=== PATIENT | male | born 2000 | race Caucasian/White ===

== ENCOUNTER 2022-10-19 12:22 | Inpatient (IN) ==
--- NOTE | 2022-10-19 12:26 | Emergency Department Note ---
Impression & Plan Depression with suicidal ideation ED Provider Note NAME: EDWIN MELLO AGE: 22 SEX: M : 2000 ARRIVES VIA: [employer] INFORMANT: Patient, ED PROVIDER(S): Trell Wolfe MD CHIEF COMPLAINT: Outpatient referral, suicidal ideation MEDICAL DECISION MAKING: Patient presents due to concern for suicidal ideation and is currently voluntary 201. Blood was obtained along with urinalysis urine drug screen and toxicology scr eens. Patient was he medically cleared and the patient was referred for inpatient treatment. Patient was excepted to [facility] S. for inpatient treatment. Prior /Outside records reviewed: None Differential diagnosis: Mood disorder, infection, hypoglycemia, electrolyte abnormalities, dehydration, medication side effect among others were considered. Diagnostics, as interpreted by me: Medical decision rules: Suicide risk assessment HPI: Patient presents as a referral from on campus Through [facility]. The patient states that something happened while he was in his class this morning he walked outside sat on a bench and was observing the moving traffic thinking that he could "end everything right now." Patient states that he was thinking about jumping in front of a moving vehicle in order to kill himself. States that he called his mother who then spoke with his brother and took a bus back to his apartment and then went to [place]. The patient states that this is been culminating over the last month. Patient states that at home he does have a father who is a relapsing alcoholic. He states that he is often verbally abusive and projects blame to others. He did recently transfer from [facility] to [facility]. The patient states that he also feels lost and is unsure as to whether or not he was to continue with [employer]. Patient denies any alcohol tobacco or drug use. The patient is new formal history or formal diagnosis of anxiety or depression. Patient denies any active HI or AVH. Patient states he currently lives with [email or web address] and is getting along with them. The patient has been attending his classes. Patient states that he has not been eating as much and feels as though he is not getting enough sleep but does believe that he got a full nights rest last evening. PAST MEDICAL HISTORY: No pertinent past medical history PAST SURGICAL HISTORY: No pertinent past surgical history SOCIAL HISTORY: [employer] [facility] student studying [employer]. Denies alcohol tobacco or drug use. HOME MEDICATIONS: See Below ALLERGIES: See Below VITALS: See Below PHYSICAL EXAMINATION: GENERAL: NAD, non-toxic. EYE EXAM: Normal conjunctiva. PERRL, no anisocoria and EOM's grossly intact w/o pain. OROPHARYNX: Moist mucus membranes, grossly normal dentition. NECK: Supple, no nuchal rigidity, no adenopathy, non-tender. No signs of meningismus. FROM of the neck with good chin to chest and neck extension. No stridor. LUNGS: Clear to auscultation. Normal chest wall mechanics. HEART: NSR, no MRG. ABDOMEN: Abdomen soft, non-tender, no masses, no rebound or guarding. BACK: No CVA TTP. SKIN: No rashes and no bruising. UPPER EXTREMITIES: Upper extremities are grossly normal. LOWER EXTREMITIES: Grossly normal, no edema. NEURO EXAM: A&O x3, cranial nerves II-XII grossly intact, normal speech, moves all 4 extremities. Psych: Positive SI with plan, did not denies HI or AVH. Past Med/Surg History Social History Smoking Status: Never smoker Preferred Language: [place] Verdean Communication Ability: Effective Crate Tier Required: No Beliefs That Will Affect Care: None Feels Safe at Home: Yes Gender Identity: Male Assistive Devices: Contacts and Glasses Allergies Allergies Allergy/AdvReac Type Severity Reaction Status Date / Time influenza virus vaccine ts Allergy Severe Swelling Unverified 10/20/22 10:39 [id number] (36 mos,up) of [From Fluarix] Lip/Tongue/Throat Home Meds Home Medications Medication Instructions Recorded Confirmed No Known Home Medications 10/19/22 10/19/22 Results & Data (ED) Vital Signs Vital Signs - 24 hr 10/19/22 12:24 10/19/22 14:03 Temperature 37.6 C H 36.9 C Temperature Source Oral Oral Pulse Rate 79 Pulse Rate [Finger] 72 Respiratory Rate 20 18 Blood Pressure 150/79 H Blood Pressure [Left Arm] 136/82 Blood Pressure Mean 102 Blood Pressure Mean [Left Arm] 100 Blood Pressure Position Sitting Blood Pressure Position [Left Arm] Sitting Pulse Oximetry 97 100 Oxygen Delivery Method Room Air Room Air Sepsis Recent Fever Within 48 Hours No Sepsis New/Unexplained Change in Mental Status No Sepsis Action Taken by Nursing No Action Required Home Medications Current Medication List: was personally reviewed by la Laboratory Data Attestation: I reviewed the patient's lab results. 10/19/22 12:50 10/19/22 12:50 Lab Results 10/19/22 10/19/22 10/19/22 Range/Units 12:38 12:38 12:50 WBC 6.12 (4.8-10.8) K/ul RBC 5.05 (4.70-6.10) M/uL Hgb 14.6 (14.0-18.0) g/dl Hct 42.1 (42.0-52.0) % MCV 83.4 (80.0-100.0) fL MCH 28.9 (25.0-34.0) pg MCHC 34.7 (32.0-36.0) g/dL RDW Std Deviation 39.2 (36.4-46.3) fL RDW Coeff of Petra 12.9 (11.5-14.5) % Plt Count 209 (130-400) K/uL MPV 9.7 (9.4-12.4) fL Immature Gran % (Auto) 0.2 % Neut % (Auto) 63.9 % Lymph % (Auto) 27.0 % Dubois % (Auto) 7.8 % Eos % (Auto) 0.8 % Baso % (Auto) 0.3 % Neut # (Auto) 3.91 (1.40-6.50) K/uL Lymph # (Auto) 1.65 (1.20-3.40) K/uL Dubois # (Auto) 0.48 (0.11-0.59) K/uL Eos # (Auto) 0.05 (0.00-0.50) K/uL Baso # (Auto) 0.02 (0.00-0.20) K/uL Immature Gran # (Auto) 0.01 (0.01-0.20) K/uL Sodium (136-145) mmol/L Potassium (3.5-5.1) mmol/L Chloride (98-107) mmol/L Carbon Dioxide (21-32) mmol/L Anion Gap (3-11) BUN (6-23) mg/dl Creatinine (0.6-1.4) mg/dl Est Cr Clr Drug Dosing ml/min Est GFR ( Amer) ml/min Est GFR (Non-Af Amer) ml/min BUN/Creatinine Ratio (10-20) Glucose (70-99(Fasting)) mg/dl Calcium (8.6-10.3) mg/dl Total Bilirubin (0.2-1.0) mg/dl AST (13-39) U/L ALT (7-52) U/L Alkaline Phosphatase (34-104) U/L Total Protein (6.0-8.3) gm/dl Albumin (3.4-5.0) gm/dl Globulin (2.5-4.0) gm/dl Albumin/Globulin Ratio (0.9-2) TSH (0.300-4.500) uIu/ml Urine Color Yellow Urine Appearance Clear (Clear) Urine pH 8.5 H (4.5-7.5) Ur Specific [place] 1.016 (1.000-1.030) Urine Protein Negative (Negative) Urine Glucose (UA) Negative (Negative) Urine Ketones Negative (Negative) Urine Blood Negative (Negative) Urine Nitrite Negative (Negative) Urine Bilirubin Negative (Negative) Urine Urobilinogen Negative (Negative) Ur Leukocyte Esterase Negative (Negative) Salicylates (3.0-30) mg/dl Urine Opiates Screen Neg (Neg) Ur Methadone, Qual Neg (Neg) Acetaminophen (10-30) ug/ml Urine Barbiturates Neg (Neg) Ur Phencyclidine (PCP) Neg (Neg) U Amphetamin/Meth Scrn Neg (Neg) MDMA (Ecstasy) Screen Neg (Neg) U Benzodiazepines Scrn Neg (Neg) Ur Cocaine Metabolite Neg (Neg) U Marijuana (THC) Screen Neg (Neg) Ethyl Alcohol mg/dL (<10.0) mg/dl 10/19/22 10/19/22 10/19/22 Range/Units 12:50 12:50 12:50 WBC (4.8-10.8) K/ul RBC (4.70-6.10) M/uL Hgb (14.0-18.0) g/dl Hct (42.0-52.0) % MCV (80.0-100.0) fL MCH (25.0-34.0) pg MCHC (32.0-36.0) g/dL RDW Std Deviation (36.4-46.3) fL RDW Coeff of Petra (11.5-14.5) % Plt Count (130-400) K/uL MPV (9.4-12.4) fL Immature Gran % (Auto) % Neut % (Auto) % Lymph % (Auto) % [place] % (Auto) % Eos % (Auto) % Baso % (Auto) % Neut # (Auto) (1.40-6.50) K/uL Lymph # (Auto) (1.20-3.40) K/uL [place] # (Auto) (0.11-0.59) K/uL Eos # (Auto) (0.00-0.50) K/uL Baso # (Auto) (0.00-0.20) K/uL Immature Gran # (Auto) (0.01-0.20) K/uL Sodium 138 (136-145) mmol/L Potassium 3.7 (3.5-5.1) mmol/L Chloride 107 (98-107) mmol/L Carbon Dioxide 23 (21-32) mmol/L Anion Gap 8 (3-11) BUN 9 (6-23) mg/dl Creatinine 0.76 (0.6-1.4) mg/dl Est Cr Clr Drug Dosing 164.6 ml/min Est GFR ( Amer) > 150.0 ml/min Est GFR (Non-Af Amer) 131.3 ml/min BUN/Creatinine Ratio 11.8 (10-20) Glucose 97 (70-99(Fasting)) mg/dl Calcium 9.7 (8.6-10.3) mg/dl Total Bilirubin 0.8 (0.2-1.0) mg/dl AST 20 (13-39) U/L ALT 33 (7-52) U/L Alkaline Phosphatase 92 (34-104) U/L Total Protein 7.5 (6.0-8.3) gm/dl Albumin 4.7 (3.4-5.0) gm/dl Globulin 2.8 (2.5-4.0) gm/dl Albumin/Globulin Ratio 1.7 (0.9-2) TSH 1.836 (0.300-4.500) uIu/ml Urine Color Urine Appearance (Clear) Urine pH (4.5-7.5) Ur Specific [place] (1.000-1.030) Urine Protein (Negative) Urine Glucose (UA) (Negative) Urine Ketones (Negative) Urine Blood (Negative) Urine Nitrite (Negative) Urine Bilirubin (Negative) Urine Urobilinogen (Negative) Ur Leukocyte Esterase (Negative) Salicylates < 3.0 L (3.0-30) mg/dl Urine Opiates Screen (Neg) Ur Methadone, Qual (Neg) Acetaminophen < 3 L (10-30) ug/ml Urine Barbiturates (Neg) Ur Phencyclidine (PCP) (Neg) U Amphetamin/Meth Scrn (Neg) MDMA (Ecstasy) Screen (Neg) U Benzodiazepines Scrn (Neg) Ur Cocaine Metabolite (Neg) U Marijuana (THC) Screen (Neg) Ethyl Alcohol mg/dL (<10.0) mg/dl 10/19/22 Range/Units 12:50 WBC (4.8-10.8) K/ul RBC (4.70-6.10) M/uL Hgb (14.0-18.0) g/dl Hct (42.0-52.0) % MCV (80.0-100.0) fL MCH (25.0-34.0) pg MCHC (32.0-36.0) g/dL RDW Std Deviation (36.4-46.3) fL RDW Coeff of Petra (11.5-14.5) % Plt Count (130-400) K/uL MPV (9.4-12.4) fL Immature Gran % (Auto) % Neut % (Auto) % Lymph % (Auto) % [place] % (Auto) % Eos % (Auto) % Baso % (Auto) % Neut # (Auto) (1.40-6.50) K/uL Lymph # (Auto) (1.20-3.40) K/uL [place] # (Auto) (0.11-0.59) K/uL Eos # (Auto) (0.00-0.50) K/uL Baso # (Auto) (0.00-0.20) K/uL Immature Gran # (Auto) (0.01-0.20) K/uL Sodium (136-145) mmol/L Potassium (3.5-5.1) mmol/L Chloride (98-107) mmol/L Carbon Dioxide (21-32) mmol/L Anion Gap (3-11) BUN (6-23) mg/dl Creatinine (0.6-1.4) mg/dl Est Cr Clr Drug Dosing ml/min Est GFR ( Amer) ml/min Est GFR (Non-Af Amer) ml/min BUN/Creatinine Ratio (10-20) Glucose (70-99(Fasting)) mg/dl Calcium (8.6-10.3) mg/dl Total Bilirubin (0.2-1.0) mg/dl AST (13-39) U/L ALT (7-52) U/L Alkaline Phosphatase (34-104) U/L Total Protein (6.0-8.3) gm/dl Albumin (3.4-5.0) gm/dl Globulin (2.5-4.0) gm/dl Albumin/Globulin Ratio (0.9-2) TSH (0.300-4.500) uIu/ml Urine Color Urine Appearance (Clear) Urine pH (4.5-7.5) Ur Specific [place] (1.000-1.030) Urine Protein (Negative) Urine Glucose (UA) (Negative) Urine Ketones (Negative) Urine Blood (Negative) Urine Nitrite (Negative) Urine Bilirubin (Negative) Urine Urobilinogen (Negative) Ur Leukocyte Esterase (Negative) Salicylates (3.0-30) mg/dl Urine Opiates Screen (Neg) Ur Methadone, Qual (Neg) Acetaminophen (10-30) ug/ml Urine Barbiturates (Neg) Ur Phencyclidine (PCP) (Neg) U Amphetamin/Meth Scrn (Neg) MDMA (Ecstasy) Screen (Neg) U Benzodiazepines Scrn (Neg) Ur Cocaine Metabolite (Neg) U Marijuana (THC) Screen (Neg) Ethyl Alcohol mg/dL < 10.0 (<10.0) mg/dl Administered Medications Discontinued Medications Miscellaneous Information (Patient's Allergy Info Needs Entered) 1 each N/A NOW STA Stop: 10/19/22 15:23 Last Admin: 10/19/22 17:53 Dose: 1 each Documented By: DMT Miscellaneous Information (Patient's Allergy Info Needs Entered) 1 each N/A Q15M KIKI Stop: 10/19/22 21:31 Last Admin: 10/19/22 20:25 Dose: 1 each Documented By: DMT Discharge Plan Visit Data Chief Complaint: Mental Health Evaluation Stated Complaint: MHID ED Provider: Trell Wolfe Discharge Problem: Depression with suicidal ideation Patient Disposition: Admitted As Inpatient Discharge Instructions Interventions: ED Discharge Assessment Last Done: 10/19/22 15:04
[2022-10-19 13:08] LABS: Appearance Urine Clear (Clear); Bilirubin Urine Negative (Negative); Blood Urine Negative (Negative); Color Urine Yellow; Glucose Urine UA Negative (Negative); Ketones Urine Negative (Negative); Leukocyte Esterase Urine Negative (Negative); Nitrite Urine Negative (Negative); Protein Urine Negative (Negative); Specific Gravity Urine 1.016 (1.000-1.030); Urobilinogen Urine Negative (Negative); pH Urine 8.5 (4.5-7.5)
[2022-10-19 13:14] LABS: Basophils # (auto) 0.02 K/uL (0.00-0.20); Basophils % (auto) 0.3 %; Eosinophils # (auto) 0.05 K/uL (0.00-0.50); Eosinophils % (auto) 0.8 %; Hematocrit (blood only) 42.1 % (42.0-52.0); Hemoglobin 14.6 g/dl (14.0-18.0); Immature Granulocytes # (auto) 0.01 K/uL (0.01-0.20); Immature Granulocytes % (auto) 0.2 %; Lymphocytes # (auto) 1.65 K/uL (1.20-3.40); Mean Corpuscular Hemoglobin 28.9 pg (25.0-34.0); Mean Corpuscular Hgb Conc 34.7 g/dL (32.0-36.0); Mean Corpuscular Volume 83.4 fL (80.0-100.0); Mean Platelet Volume 9.7 fL (9.4-12.4); Monocytes # (auto) 0.48 K/uL (0.11-0.59); Monocytes % (auto) 7.8 %; Neutrophils # (auto) 3.91 K/uL (1.40-6.50); Neutrophils % (auto) 63.9 %; Platelet Count 209 K/uL (130-400); RDW Coefficient of Variation 12.9 % (11.5-14.5); RDW Standard Deviation 39.2 fL (36.4-46.3); Red Blood Count 5.05 M/uL (4.70-6.10); White Blood Count 6.12 K/ul (4.8-10.8)
[2022-10-19 13:36] LABS: Amphetamines+Metham, Urine Neg (Neg); Barbiturates, Urine Neg (Neg); Benzodiazepine, Urine Neg (Neg); Cocaine, Urine Neg (Neg); MDMA (Ecstacy), Urine Neg (Neg); Methadone, Urine Neg (Neg); Opiate, Urine Neg (Neg); Phencyclidine, Urine Neg (Neg)
[2022-10-19 13:37] LABS: Acetaminophen < 3 ug/ml (10-30); Salicylate < 3.0 mg/dl (3.0-30)
[2022-10-19 13:39] LABS: Alanine Aminotransferase 33 U/L (7-52); Albumin Globulin Ratio 1.7 (0.9-2); Albumin Level 4.7 gm/dl (3.4-5.0); Alkaline Phosphatase 92 U/L (34-104); Anion Gap 8 (3-11); Aspartate Aminotransferase 20 U/L (13-39); BUN Creatinine Ratio 11.8 (10-20); Bilirubin,Total 0.8 mg/dl (0.2-1.0); Blood Urea Nitrogen 9 mg/dl (6-23); Calcium 9.7 mg/dl (8.6-10.3); Carbon Dioxide 23 mmol/L (21-32); Chloride 107 mmol/L (98-107); Creatinine Clr Calc Pharmacy 164.6 ml/min; Est GFR (African American) > 150.0 ml/min; Est GFR (Non-African American) 131.3 ml/min; Globulin 2.8 gm/dl (2.5-4.0); Glucose 97 mg/dl (70-99(Fasting)); Potassium 3.7 mmol/L (3.5-5.1); Sodium 138 mmol/L (136-145); Total Protein 7.5 gm/dl (6.0-8.3)
[2022-10-19] MEDS ORDERED: ACETAMINOPHEN 325 MG TAB PO PRN (15:19)
[2022-10-19] MEDS ORDERED: MAGNESIUM HYDROXIDE SUSP 30 ML UDC PO PRN (15:19)
[2022-10-19] MEDS ORDERED: SODIUM CHLORIDE 0.65% NA SOLN 45 ML (OCEAN) PRN (15:19)
[2022-10-19] MEDS ORDERED: BISMUTH SUBSALICYLATE LIQD 236 ML PO PRN (15:19)
[2022-10-19] MEDS ORDERED: ALUMINUM/MAGNESIUM SUSP 30 ML UDC PO PRN (15:19)
[2022-10-19] MEDS ORDERED: hydrOXYzine HCl 25 MG TAB PO PRN ×2 (15:19)
[2022-10-19] MEDS ORDERED: Patient's ALLERGY Info needs ENTERED STA (15:22)
[2022-10-19] MEDS: Patient's ALLERGY Info needs ENTERED SCH (20:25)
--- NOTE | 2022-10-20 09:04 | History & Physical ---
Date of Service October 20, 2022 Impression / Recommendations Tobias Trujillo is a 22 year old man and [employer] student with no formal psychiatric history who was admitted for worsening depresion with SI with plan in context of questioning his major and recent transition to [employer] [facility] main campus. Diagnostically consistent with major depressive disorder and CARLA with panic attacks. He is deemed in need of psychiatric hospitalization for diagnostic clarification, safety and stabilization, medication management and development of further coping skills. Discussed medication treatment options in detail including SSRIs. Discussed risks, benefits and alternatives. Patient would like to start and consented to sertraline for MDD and CARLA. Reviewed side effects including but not limited to: GI, MARSH, sexual side effects, and counseled on black box warning of potential for emergence of or increased SI and need to let staff know should this occur or should they feel unsafe. Also discussed importance of seeking emergency care following discharge if this side effect occurs in the future. Overall I spent a total of 75 minutes for this admission including review of chart records, review of labwork, direct evaluation of the patient, counseling the patient, ordering medication, risk assessment, discussion with the psychiatric liason RN and documentation in the electronic health record. (1) Depression with suicidal ideation: (2) Major depress dis, severe: Plan 10/20/2022: The patient was admitted to the [facility] ([facility] mental health unit) on q15 min checks (behavioral with suicide precautions) for safety. The patient will participate in group, recreational, and milieu therapies and will be offered additional individual and family sessions as clinically appropriate. -sertraline 50mg qd Inventory Assets Strengths: supportive relationships, willing to get treatment Needs: safety and stabilization, medication adjustment, additional coping skills, increased outpatient services Suicide Risk Level Suicide Risk Level: High-Moderate (q15 min suicide checks) (severe depression with SI with plan prior to admission but feels safe in the hospital, able to safety contract and agrees to let nursing/staff know should they develop plan, intent or feel unable to remain safe. 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 Chief Complaint "I feel like I dug myself into a hole". History of Present Illness Edwin was referred to the ED by [facility] for worsening depression and SI with plan of walking into traffic. His mood has been worsening in the context of multiple psychosocial stressors including transitioning from a [employer] [facility] to [facility] and unsure about continuing with his chosen major/career path. He felt so overwhelmed yesterday that he walked out of class and thought about walking into fast moving cars but then called his mom and called the [facility] crisis line. He feels like he's been experiencing depression for the last few weeks with "a general sadness and numbness of the situation" since his move and "more and more invasive of thinking 'I can't do this'" along with SI every few days "but then they just got more intense". He endorses depressive symptoms including: anhedonia (difficulty relaxing), tearfulness, self-guilt, hopelessness, helplessness, decreased energy, decreased motivation, decreased concentration, sleep has been ok, and decreased appetite. He also endorses chronic anxiety symptoms which have been worsening including: excessive worry, restlessness, fatigue, irritability, decreased concentration, and panic attacks (over the summer once a month, during the rest of the year every few months). Further recent history per ED CM note on 10/19/2022: "He was referred to the Emergency Department by [facility] after he called [facility]'s Crisis Line. Edwin states that he was in class this morning and suddenly got overwhelmed and had to leave. He went and sat by the road and had the thought/urge to walk out into traffic and end it all. He states that he has had suicidal ideation for the past month and it has worsened over the past two days. He admits to feeling lost and trapped in regards to his recent transfer to [facility] from [facility] [facility] [employer] [employer]'s [facility]. 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 He also endorses familial stress in that his father is a relapsing alcoholic, his mother is dealing with him, and his brother has his own depressive issues. Edwin has no outpatient providers and does not take any medication for his mental health. He does not follow with psychiatry. His sleep has been somewhat okay but he feels when he wakes up as if he hasn't gotten any sleep at all. His appetite has been decreased, his concentration has been poor, and he lacks motivation to complete tasks. Edwin is willing and voluntary for inpatient psychiatric treatment, he has no history of this. He lives on campus with roommates, no access to firearms. He denies SIB, A/V hallucinations and HI. He states he has negative feelings towards his father but denies any active plan or intent to kill him." He is not currently prescribed any psychiatric medications. Psychiatric ROS notable for no current nor history of symptoms of jerry, psychosis, OCD, eating disorder nor self-harm. Past Psychiatric History Current Psychiatric Diagnosis: Depression, Anxiety Outpatient Services: none currently, hx therapy at [facility] Previous Psych Admissions: none Do You Have Access To A Gun?: Yes (rifles at parents house, locked in gun safe, he doesn't have coles) History of Previous Suicide Attempt: No Past Medication Trials: none Past Head Trauma/Neuro History History of Concussion/Seizure: No Allergies Allergy/AdvReac Type Severity Reaction Status Date / Time influenza virus vaccine ts Allergy Severe Swelling Unverified 10/20/22 10:39 [id number] (36 mos,up) of [From Fluarix] Lip/Tongue/Throat Home Medications Medication Instructions Recorded Confirmed Type No Known Home Medications 10/19/22 10/19/22 History Family History Family History of: Depression (brother), Alcoholism/Drug Abuse (father) and Suicide Attempts (brother at age 14/15 ) Alcohol History Hx of Alcohol Use Over the Past 12 Months: Yes (1-2 drinks/week) AUDIT Total Score: 2 May drink monthly, 2 drinks over 3 hours Smoking Use Have You Smoked or Used Tobacco Products in the Last 30 Days: No Smoking Status: Never smoker Substance History Hx of Prescription Med Misuse Over the Past 12 Months: No Hx of Over the Counter Med Misuse Over the Past 12 Months: No Hx of Inhalent Misuse Over the Past 12 Months: No Hx of Organic Substance Use Over the Past 12 Months: No Hx of Illegal Substances/Street Drug Use Over Past 12 Months: No Problems as a Result of Past Substance Use: None Identified Problems as a Result of Past Substance Use Comments: None identified Has smoked marijuana in the past but only a few times, none in recent months Personal History Living Arrangements: Apartment Childhood: Grew up in [facility] [place]. Parents . Older brother. Highest Grade Completed: Some College ([employer] in [employer]) Employment Status: Student Marital Status: Single Number Of Children: n/a Beliefs That Will Affect Care: None Current Legal Problems: No Hx Legal Problems: No Hx Traumatic Life Events: Yes Patient History Social History Smoking Status: Never smoker Preferred Language: Congolese Communication Ability: Effective Senior Marketing Associate Required: No Beliefs That Will Affect Care: None Feels Safe at Home: Yes Gender Identity: Male Assistive Devices: Contacts and Glasses Review of Systems Review of Systems: All systems reviewed & are unremarkable except as noted in HPI & below Physical Exam Psychiatric: Orientation: alert and oriented x 3 Apperance: appropriately dressed and appropriately groomed Eye Contact: good eye contact Motor Behavior: no abnormal motor movements Speech: normal rate/rhythm/volume of speech Affect: + depressed affect Mood: + depressed mood and + anxious mood Thought Process: goal directed thought process Thought Content: reality based without delusions Suicidal Thoughts: denies suicidal intent; + reports suicidal thoughts and + reports suicidal plan (none for hospital, walk into traffic outside hospital) Homicidal Thoughts: denies homicidal thoughts Hallucinations: no auditory hallucinations and no visual hallucinations Cognition: recent memory grossly intact, remote memory grossly intact, attention grossly intact and language grossly intact Estimated Intelligence: consistent with education level Insight: + fair insight Judgment: + fair judgement Vital Signs (Past 24 Hours): Last Vital Signs Temp 36.5 C 10/20/22 06:38 Pulse 90 10/20/22 06:38 Resp 16 10/20/22 06:38 BP 158/76 H 10/20/22 06:38 Pulse Ox 99 10/20/22 06:38 O2 Del Method Room Air 10/20/22 06:38 Exam Statement: A physical exam was performed in the ED by Dr. Wolfe for the purposes of medical clearance. I accept that physical as correct and adequate for the purposes of the inpatient physical exam. Results & Data ([facility]) Laboratory Results Laboratory Results - last 24 hr 10/19/22 10/19/22 10/19/22 12:38 12:38 12:50 WBC 6.12 RBC 5.05 Hgb 14.6 Hct 42.1 MCV 83.4 MCH 28.9 MCHC 34.7 RDW Std Deviation 39.2 RDW Coeff of Petra 12.9 Plt Count 209 MPV 9.7 Immature Gran % (Auto) 0.2 Neut % (Auto) 63.9 Lymph % (Auto) 27.0 Schuyler % (Auto) 7.8 Eos % (Auto) 0.8 Baso % (Auto) 0.3 Neut # (Auto) 3.91 Lymph # (Auto) 1.65 Schuyler # (Auto) 0.48 Eos # (Auto) 0.05 Baso # (Auto) 0.02 Immature Gran # (Auto) 0.01 Sodium Potassium Chloride Carbon Dioxide Anion Gap BUN Creatinine Est Cr Clr Drug Dosing Est GFR ( Amer) Est GFR (Non-Af Amer) BUN/Creatinine Ratio Glucose Calcium Total Bilirubin AST ALT Alkaline Phosphatase Total Protein Albumin Globulin Albumin/Globulin Ratio TSH Urine Color Yellow Urine Appearance Clear Urine pH 8.5 H Ur Specific [place] 1.016 Urine Protein Negative Urine Glucose (UA) Negative Urine Ketones Negative Urine Blood Negative Urine Nitrite Negative Urine Bilirubin Negative Urine Urobilinogen Negative Ur Leukocyte Esterase Negative Salicylates Urine Opiates Screen Neg Ur Methadone, Qual Neg Acetaminophen Urine Barbiturates Neg Ur Phencyclidine (PCP) Neg U Amphetamin/Meth Scrn Neg MDMA (Ecstasy) Screen Neg U Benzodiazepines Scrn Neg Ur Cocaine Metabolite Neg U Marijuana (THC) Screen Neg Ethyl Alcohol mg/dL SARS-CoV-2, RNA, NAAT 10/19/22 10/19/22 10/19/22 12:50 12:50 12:50 WBC RBC Hgb Hct MCV MCH MCHC RDW Std Deviation RDW Coeff of Petra Plt Count MPV Immature Gran % (Auto) Neut % (Auto) Lymph % (Auto) [place] % (Auto) Eos % (Auto) Baso % (Auto) Neut # (Auto) Lymph # (Auto) [place] # (Auto) Eos # (Auto) Baso # (Auto) Immature Gran # (Auto) Sodium 138 Potassium 3.7 Chloride 107 Carbon Dioxide 23 Anion Gap 8 BUN 9 Creatinine 0.76 Est Cr Clr Drug Dosing 164.6 Est GFR ( Amer) > 150.0 Est GFR (Non-Af Amer) 131.3 BUN/Creatinine Ratio 11.8 Glucose 97 Calcium 9.7 Total Bilirubin 0.8 AST 20 ALT 33 Alkaline Phosphatase 92 Total Protein 7.5 Albumin 4.7 Globulin 2.8 Albumin/Globulin Ratio 1.7 TSH 1.836 Urine Color Urine Appearance Urine pH Ur Specific [place] Urine Protein Urine Glucose (UA) Urine Ketones Urine Blood Urine Nitrite Urine Bilirubin Urine Urobilinogen Ur Leukocyte Esterase Salicylates < 3.0 L Urine Opiates Screen Ur Methadone, Qual Acetaminophen < 3 L Urine Barbiturates Ur Phencyclidine (PCP) U Amphetamin/Meth Scrn MDMA (Ecstasy) Screen U Benzodiazepines Scrn Ur Cocaine Metabolite U Marijuana (THC) Screen Ethyl Alcohol mg/dL SARS-CoV-2, RNA, NAAT 10/19/22 10/19/22 12:50 Unknown WBC RBC Hgb Hct MCV MCH MCHC RDW Std Deviation RDW Coeff of Petra Plt Count MPV Immature Gran % (Auto) Neut % (Auto) Lymph % (Auto) [place] % (Auto) Eos % (Auto) Baso % (Auto) Neut # (Auto) Lymph # (Auto) [place] # (Auto) Eos # (Auto) Baso # (Auto) Immature Gran # (Auto) Sodium Potassium Chloride Carbon Dioxide Anion Gap BUN Creatinine Est Cr Clr Drug Dosing Est GFR ( Amer) Est GFR (Non-Af Amer) BUN/Creatinine Ratio Glucose Calcium Total Bilirubin AST ALT Alkaline Phosphatase Total Protein Albumin Globulin Albumin/Globulin Ratio TSH Urine Color Urine Appearance Urine pH Ur Specific [place] Urine Protein Urine Glucose (UA) Urine Ketones Urine Blood Urine Nitrite Urine Bilirubin Urine Urobilinogen Ur Leukocyte Esterase Salicylates Urine Opiates Screen Ur Methadone, Qual Acetaminophen Urine Barbiturates Ur Phencyclidine (PCP) U Amphetamin/Meth Scrn MDMA (Ecstasy) Screen U Benzodiazepines Scrn Ur Cocaine Metabolite U Marijuana (THC) Screen Ethyl Alcohol mg/dL < 10.0 SARS-CoV-2, RNA, NAAT NEGATIVE Current Inpatient Medications Current Inpatient Medications: Current Inpatient Medications Acetaminophen (Acetaminophen 325 Mg Tab) 650 mg PO Q4H PRN PRN Reason: Headache or Minor Fever Stop: 11/18/22 15:18 Al Hydrox/Mg Hydrox/Simethicone (Aluminum/Magnesium Susp 30 Ml Udc) 30 ml PO Q4H PRN PRN Reason: GI Upset Stop: 11/18/22 15:18 Bismuth Subsalicylate (Bismuth Subsalicylate Liqd 236 Ml) 15 ml PO PRN PRN PRN Reason: Loose Stool Stop: 11/18/22 15:18 Hydroxyzine HCl (Hydroxyzine Hcl 25 Mg Tab) 50 mg PO HSZ PRN PRN Reason: Insomnia Stop: 11/18/22 15:18 Hydroxyzine HCl (Hydroxyzine Hcl 25 Mg Tab) 25 mg PO Q4H PRN PRN Reason: Anxiety Stop: 11/18/22 15:18 Magnesium Hydroxide (Magnesium Hydroxide Susp 30 Ml Udc) 30 ml PO DAILY PRN PRN Reason: Constipation Stop: 11/18/22 15:18 Sodium Chloride (Sodium Chloride 0.65% Na Soln 45 Ml ([place])) 1 - 2 sprays NA PRN PRN PRN Reason: Nasal Dryness/Congestion Stop: 11/18/22 15:18
[2022-10-20] MEDS: SERTRALINE HCL 50 MG TABLET PO SCH (11:23)
[2022-10-20] MEDS: Patient's ALLERGY Info needs ENTERED SCH ×3 (16:46→18:51)
[2022-10-21] MEDS: SERTRALINE HCL 50 MG TABLET PO SCH (08:39)
--- NOTE | 2022-10-21 15:19 | Psychiatric Progress Note ---
Date of Service October 21, 2022 Impression / Recommendations Tobias Trujillo is a 22 year old man and [employer] student with no formal psychiatric history who was admitted for worsening depresion with SI with plan in context of questioning his major and recent transition to [employer] [employer] main campus. Diagnostically consistent with major depressive disorder and CARLA with panic attacks. He is deemed in need of psychiatric hospitalization for diagnostic clarification, safety and stabilization, medication management and development of further coping skills. 10/21/2022: impression as per Dr. mccollum, improving Overall I spent a total of 28 minutes for this admission including review of chart records,, direct evaluation of the patient, counseling the patient, risk assessment, discussion with nursing, and documentation in the electronic health record. (1) Depression with suicidal ideation: (2) Major depress dis, severe: Plan 10/21/2022: continue current medication and tx plan. 10/20/2022: The patient was admitted to the [facility] ([facility] mental health unit) on q15 min checks (behavioral with suicide precautions) for safety. The patient will participate in group, recreational, and milieu therapies and will be offered additional individual and family sessions as clinically appropriate. -sertraline 50mg qd Inventory Assets Strengths: supportive relationships, willing to get treatment Needs: safety and stabilization, medication adjustment, additional coping skills, increased outpatient services Suicide Risk Level Suicide Risk Level: Moderate (q15 min suicide checks) Risk Factors Assessment Male: Yes : Yes Do You Have Access To A Gun?: Yes (access at parents home, locked and secured- will verify with mom) Health Problems: No Mental Health Diagnoses: Yes Substance Use Disorders: No Previous Attempt: No Family History of Suicide: Yes (brother attempted) Previous Psychiatric Hospitalization: No Protective Factors Assessment 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 Chief Complaint "I feel like I'm getting a plan." Review of Systems Sleep Information Total Hours of Sleep: 6.5 Meal Information Percent Meal Consumed - Breakfast: 100 Percent Meal Consumed - Lunch: 100 Percent Meal Consumed - Dinner: 60 Subjective Subjective Patient was seen & assessed and interval progress reviewed with nursing. tolerating Zoloft first doses. relieved by his decision to take a break and determine what's next, identifies that he doesn't want to "end up" like father who dislikes job and struggled with ETOH. Physical Exam Psychiatric Orientation: alert and oriented x 3 Apperance: appropriately dressed and appropriately groomed Eye Contact: good eye contact Motor Behavior: no abnormal motor movements Speech: normal rate/rhythm/volume of speech Affect: euthymic affect Mood: + depressed mood and + anxious mood Thought Process: goal directed thought process Thought Content: reality based without delusions Suicidal Thoughts: denies suicidal thoughts Homicidal Thoughts: denies homicidal thoughts Hallucinations: no auditory hallucinations and no visual hallucinations Cognition: attention grossly intact Estimated Intelligence: consistent with education level Insight: + fair insight Vital Signs (Past 24 Hours) Last Vital Signs Temp 36.6 C 10/21/22 06:35 Pulse 75 10/21/22 06:35 Resp 16 10/21/22 06:35 BP 137/83 10/21/22 06:35 Pulse Ox 99 10/20/22 06:38 O2 Del Method Room Air 10/20/22 06:38 Results & Data ([facility]) Current Inpatient Medications Current Inpatient Medications: Current Inpatient Medications Acetaminophen (Acetaminophen 325 Mg Tab) 650 mg PO Q4H PRN PRN Reason: Headache or Minor Fever Stop: 11/18/22 15:18 Al Hydrox/Mg Hydrox/Simethicone (Aluminum/Magnesium Susp 30 Ml Udc) 30 ml PO Q4H PRN PRN Reason: GI Upset Stop: 11/18/22 15:18 Bismuth Subsalicylate (Bismuth Subsalicylate Liqd 236 Ml) 15 ml PO PRN PRN PRN Reason: Loose Stool Stop: 11/18/22 15:18 Hydroxyzine HCl (Hydroxyzine Hcl 25 Mg Tab) 50 mg PO HSZ PRN PRN Reason: Insomnia Stop: 11/18/22 15:18 Hydroxyzine HCl (Hydroxyzine Hcl 25 Mg Tab) 25 mg PO Q4H PRN PRN Reason: Anxiety Stop: 11/18/22 15:18 Magnesium Hydroxide (Magnesium Hydroxide Susp 30 Ml Udc) 30 ml PO DAILY PRN PRN Reason: Constipation Stop: 11/18/22 15:18 Sertraline HCl (Sertraline Hcl 50 Mg Tablet) 50 mg PO QAM KIKI Stop: 11/19/22 11:14 Last Admin: 10/21/22 08:39 Dose: 50 mg Sodium Chloride (Sodium Chloride 0.65% Na Soln 45 Ml ([place])) 1 - 2 sprays NA PRN PRN PRN Reason: Nasal Dryness/Congestion Stop: 11/18/22 15:18 Mental Health & Subst Abuse Tx Therapist Name of Therapist: N/A Metal Fabricator Welder Name of Metal Fabricator Welder: [facility] Phone Number for Metal Fabricator Welder: [phone] Date of Appointment with Metal Fabricator Welder: 10/24/22 Time of Appointment with Metal Fabricator Welder: 11am Case Management Appointment Comment: Zoom link will be sent to [employer] email Post Discharge Appointments Primary Care Physician Name Of Family Doctor/PCP: [facility]-Hiwot Arboleda MD (DEEPA Cabrera) Date of Future Appointment with PCP: 01/12/23
[2022-10-22] MEDS: SERTRALINE HCL 50 MG TABLET PO SCH (08:50)
--- NOTE | 2022-10-22 15:09 | Psychiatric Progress Note ---
Date of Service October 22, 2022 Impression / Recommendations Tobias Trujillo is a 22 year old man and [employer] student with no formal psychiatric history who was admitted for worsening depresion with SI with plan in context of questioning his major and recent transition to [facility] main [facility]. Diagnostically consistent with major depressive disorder and CARLA with panic attacks. He is deemed in need of psychiatric hospitalization for diagnostic clarification, safety and stabilization, medication management and development of further coping skills. 10/22/2022: impression as per Dr. mccollum, minimal medication side effects. Overall I spent a total of 25 minutes for this patient including direct evaluation of the patient, counseling the patient, discussion with nursing, and documentation in the electronic health record. (1) Depression with suicidal ideation: (2) Major depress dis, severe: Plan 10/21/2022: family meeting and finalize safety plan. 10/21/2022: continue current medication and tx plan. 10/20/2022: The patient was admitted to the [facility] ([facility]) on q15 min checks (behavioral with suicide precautions) for safety. The patient will participate in group, recreational, and milieu therapies and will be offered additional individual and family sessions as clinically appropriate. -sertraline 50mg qd Inventory Assets Strengths: supportive relationships, willing to get treatment Needs: safety and stabilization, medication adjustment, additional coping skills, in creased outpatient services Suicide Risk Level Suicide Risk Level: Moderate (q15 min suicide checks) Risk Factors Assessment Male: Yes : Yes Do You Have Access To A Gun?: Yes (access at parents home, locked and secured- will verify with mom) Health Problems: No Mental Health Diagnoses: Yes Substance Use Disorders: No Previous Attempt: No Family History of Suicide: Yes (brother attempted) Previous Psychiatric Hospitalization: No Protective Factors Assessment 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 Chief Complaint "I feel supported here." Review of Systems Sleep Information Total Hours of Sleep: 6.5 Meal Information Percent Meal Consumed - Breakfast: 100 Percent Meal Consumed - Lunch: 90 Percent Meal Consumed - Dinner: 100 Subjective Subjective Patient was seen & assessed and interval progress reviewed with nursing. Patient reported a brief period of feeling "zoned out" yesterday afternoon, denies sedation or GI. Positive re: milieu/group therapies. Physical Exam Psychiatric Orientation: alert and oriented x 3 Apperance: appropriately dressed and appropriately groomed Eye Contact: good eye contact Motor Behavior: no abnormal motor movements Speech: normal rate/rhythm/volume of speech Affect: euthymic affect Mood: no anxious mood Thought Process: goal directed thought process Thought Content: reality based without delusions Suicidal Thoughts: denies suicidal thoughts Homicidal Thoughts: denies homicidal thoughts Hallucinations: no auditory hallucinations and no visual hallucinations Cognition: recent memory grossly intact, remote memory grossly intact, attention grossly intact and language grossly intact Estimated Intelligence: consistent with education level Insight: + fair insight Judgment: + fair judgement Vital Signs (Past 24 Hours) Last Vital Signs Temp 36.9 C 10/22/22 06:39 Pulse 70 10/22/22 06:40 Resp 16 10/22/22 06:39 BP 136/86 10/22/22 06:40 Pulse Ox 99 10/20/22 06:38 O2 Del Method Room Air 10/20/22 06:38 Results & Data (U) Current Inpatient Medications Current Inpatient Medications: Current Inpatient Medications Acetaminophen (Acetaminophen 325 Mg Tab) 650 mg PO Q4H PRN PRN Reason: Headache or Minor Fever Stop: 11/18/22 15:18 Al Hydrox/Mg Hydrox/Simethicone (Aluminum/Magnesium Susp 30 Ml Udc) 30 ml PO Q4H PRN PRN Reason: GI Upset Stop: 11/18/22 15:18 Bismuth Subsalicylate (Bismuth Subsalicylate Liqd 236 Ml) 15 ml PO PRN PRN PRN Reason: Loose Stool Stop: 11/18/22 15:18 Hydroxyzine HCl (Hydroxyzine Hcl 25 Mg Tab) 50 mg PO HSZ PRN PRN Reason: Insomnia Stop: 11/18/22 15:18 Hydroxyzine HCl (Hydroxyzine Hcl 25 Mg Tab) 25 mg PO Q4H PRN PRN Reason: Anxiety Stop: 11/18/22 15:18 Magnesium Hydroxide (Magnesium Hydroxide Susp 30 Ml Udc) 30 ml PO DAILY PRN PRN Reason: Constipation Stop: 11/18/22 15:18 Sertraline HCl (Sertraline Hcl 50 Mg Tablet) 50 mg PO QAM KIKI Stop: 11/19/22 11:14 Last Admin: 10/22/22 08:50 Dose: 50 mg Sodium Chloride (Sodium Chloride 0.65% Na Soln 45 Ml ([place])) 1 - 2 sprays NA PRN PRN PRN Reason: Nasal Dryness/Congestion Stop: 11/18/22 15:18 Mental Health & Subst Abuse Tx Therapist Name of Therapist: N/A Dietary Supervisor Name of Dietary Supervisor: [employer] Phone Number for Dietary Supervisor: [phone] Date of Appointment with Dietary Supervisor: 10/24/22 Time of Appointment with Dietary Supervisor: 11am Case Management Appointment Comment: Zoom link will be sent to [employer] email Post Discharge Appointments Primary Care Physician Name Of Family Doctor/PCP: [facility]-Hiwot Arboleda MD ([place]) Date of Future Appointment with PCP: 01/12/23
[2022-10-23] MEDS: SERTRALINE HCL 50 MG TABLET PO SCH (08:51)
--- NOTE | 2022-10-23 12:10 | Discharge Summary ---
Date of Service October 23, 2022 History of Present Illness As per Dr. Tobar on admission: Ronnie was referred to the ED by [facility] for worsening depression and SI with plan of walking into traffic. His mood has been worsening in the context of multiple psychosocial stressors including transitioning from a [employer] to [facility] and unsure about continuing with his chosen major/career path. He felt so overwhelmed yesterday that he walked out of class and thought about walking into fast moving cars but then called his mom and called the [facility] crisis line. He feels like he's been experiencing depression for the last few weeks with "a general sadness and numbness of the situation" since his move and "more and more invasive of thinking 'I can't do this'" along with SI every few days "but then they just got more intense". He endorses depressive symptoms including: anhedonia (difficulty relaxing), tearfulness, self-guilt, hopelessness, helplessness, decreased energy, decreased motivation, decreased concentration, sleep has been ok, and decreased appetite. He also endorses chronic anxiety symptoms which have been worsening including: excessive worry, restlessness, fatigue, irritability, decreased concentration, and panic attacks (over the summer once a month, during the rest of the year every few months). Further recent history per ED CM note on 10/19/2022: "He was referred to the Emergency Department by [facility] after he called [facility]'s Crisis Line. Ronnie states that he was in class this morning and suddenly got overwhelmed and had to leave. He went and sat by the road and had the thought/urge to walk out into traffic and end it all. He states that he has had suicidal ideation for the past month and it has worsened over the past two days. He admits to feeling lost and trapped in regards to his recent transfer to [facility] from [facility]. 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 He also endorses familial stress in that his father is a relapsing alcoholic, his mother is dealing with him, and his brother has his own depressive issues. Ronnie has no outpatient providers and does not take any medication for his mental health. He does not follow with psychiatry. His sleep has been somewhat okay but he feels when he wakes up as if he hasn't gotten any sleep at all. His appetite has been decreased, his concentration has been poor, and he lacks motivation to complete tasks. Ronnie is willing and voluntary for inpatient psychiatric treatment, he has no history of this. He lives on campus with roommates, no access to firearms. He denies SIB, A/V hallucinations and HI. He states he has negative feelings towards his father but denies any active plan or intent to kill him." He is not currently prescribed any psychiatric medications. Psychiatric ROS notable for no current nor history of symptoms of jerry, psychosis, OCD, eating disorder nor self-harm. Physical Exam Psychiatric See admission H&P and DOD assessment. Vital Signs (Past 24 Hours) Last Vital Signs Temp 36.6 C 10/23/22 10:50 Pulse 90 10/23/22 10:50 Resp 16 10/23/22 10:50 BP 123/79 10/23/22 10:50 Pulse Ox 99 10/23/22 10:50 O2 Del Method Room Air 10/20/22 06:38 Principal Diagnosis depressive disorder Psychiatric Data See daily stay summary. In short, safety was maintained and the patient was cooperative with care. Medication changes included a trial of sertraline and they tolerated this well. A family session was held and safety plan was completed prior to discharge. He has decided to withdraw from classes and return home for a few weeks. He did have some sore throat and congestion last pm which seem related to indoor allergies, tested negative for COVID. He agrees to f/u with PCP if symptoms fail to resolve/worsen. Day of Discharge Assessment Today the patient voices readiness for discharge. They note improvement in mood and deny thoughts to harm self or others. Thoughts remain organized and they are improved from admission. There is no evidence of psychosis. They agree to take mediations as prescribed and keep follow-up appointments. They are stable for discharge to outpatient level of care. Transition of Care Transition Of Care Record: was reviewed with the patient Advance Directives Advance Directives Information Provided: Yes Advance Directives: No Mental Health Advance Directive: No Advance Directives on File: No Living Will: No Power of Merchandise Adjustment Clerk: No Advance Directives Reason:: Declines as Mental Health Visit. Suicide Risk Level Suicide Risk Level Comments: Suicide risk at discharge is deemed low as the patient is no longer requiring 24-hr monitoring, has a safety plan, and is free of suicidal ideation at discharge. 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) Stable Relationships: Yes Supportive Family: Yes Tobacco Cessation at Discharge Tobacco Cessation Medication Prescribed at Discharge: Not Applicable/Non-Smoker Total Time Total Time Spent: Greater Than 30 Minutes (31 min) Total Time Includes: Examination of the patient, Discharge Planning and Medication Reconciliation Discharge Data Lab Results 10/19/22 10/19/22 10/19/22 12:38 12:38 12:50 WBC 6.12 RBC 5.05 Hgb 14.6 Hct 42.1 MCV 83.4 MCH 28.9 MCHC 34.7 RDW Std Deviation 39.2 RDW Coeff of Petra 12.9 Plt Count 209 MPV 9.7 Immature Gran % (Auto) 0.2 Neut % (Auto) 63.9 Lymph % (Auto) 27.0 Beaver % (Auto) 7.8 Eos % (Auto) 0.8 Baso % (Auto) 0.3 Neut # (Auto) 3.91 Lymph # (Auto) 1.65 Beaver # (Auto) 0.48 Eos # (Auto) 0.05 Baso # (Auto) 0.02 Immature Gran # (Auto) 0.01 Sodium Potassium Chloride Carbon Dioxide Anion Gap BUN Creatinine Est Cr Clr Drug Dosing Est GFR ( Amer) Est GFR (Non-Af Amer) BUN/Creatinine Ratio Glucose Calcium Total Bilirubin AST ALT Alkaline Phosphatase Total Protein Albumin Globulin Albumin/Globulin Ratio TSH Urine Color Yellow Urine Appearance Clear Urine pH 8.5 H Ur Specific Whitakers 1.016 Urine Protein Negative Urine Glucose (UA) Negative Urine Ketones Negative Urine Blood Negative Urine Nitrite Negative Urine Bilirubin Negative Urine Urobilinogen Negative Ur Leukocyte Esterase Negative Salicylates Urine Opiates Screen Neg Ur Methadone, Qual Neg Acetaminophen Urine Barbiturates Neg Ur Phencyclidine (PCP) Neg U Amphetamin/Meth Scrn Neg MDMA (Ecstasy) Screen Neg U Benzodiazepines Scrn Neg Ur Cocaine Metabolite Neg U Marijuana (THC) Screen Neg Ethyl Alcohol mg/dL SARS-CoV-2, RNA, NAAT 10/19/22 10/19/22 10/19/22 12:50 12:50 12:50 WBC RBC Hgb Hct MCV MCH MCHC RDW Std Deviation RDW Coeff of Petra Plt Count MPV Immature Gran % (Auto) Neut % (Auto) Lymph % (Auto) Beaver % (Auto) Eos % (Auto) Baso % (Auto) Neut # (Auto) Lymph # (Auto) Beaver # (Auto) Eos # (Auto) Baso # (Auto) Immature Gran # (Auto) Sodium 138 Potassium 3.7 Chloride 107 Carbon Dioxide 23 Anion Gap 8 BUN 9 Creatinine 0.76 Est Cr Clr Drug Dosing 164.6 Est GFR ( Amer) > 150.0 Est GFR (Non-Af Amer) 131.3 BUN/Creatinine Ratio 11.8 Glucose 97 Calcium 9.7 Total Bilirubin 0.8 AST 20 ALT 33 Alkaline Phosphatase 92 Total Protein 7.5 Albumin 4.7 Globulin 2.8 Albumin/Globulin Ratio 1.7 TSH 1.836 Urine Color Urine Appearance Urine pH Ur Specific Whitakers Urine Protein Urine Glucose (UA) Urine Ketones Urine Blood Urine Nitrite Urine Bilirubin Urine Urobilinogen Ur Leukocyte Esterase Salicylates < 3.0 L Urine Opiates Screen Ur Methadone, Qual Acetaminophen < 3 L Urine Barbiturates Ur Phencyclidine (PCP) U Amphetamin/Meth Scrn MDMA (Ecstasy) Screen U Benzodiazepines Scrn Ur Cocaine Metabolite U Marijuana (THC) Screen Ethyl Alcohol mg/dL SARS-CoV-2, RNA, NAAT 10/19/22 10/19/22 10/23/22 12:50 Unknown 01:15 WBC RBC Hgb Hct MCV MCH MCHC RDW Std Deviation RDW Coeff of Petra Plt Count MPV Immature Gran % (Auto) Neut % (Auto) Lymph % (Auto) Beaver % (Auto) Eos % (Auto) Baso % (Auto) Neut # (Auto) Lymph # (Auto) Beaver # (Auto) Eos # (Auto) Baso # (Auto) Immature Gran # (Auto) Sodium Potassium Chloride Carbon Dioxide Anion Gap BUN Creatinine Est Cr Clr Drug Dosing Est GFR ( Amer) Est GFR (Non-Af Amer) BUN/Creatinine Ratio Glucose Calcium Total Bilirubin AST ALT Alkaline Phosphatase Total Protein Albumin Globulin Albumin/Globulin Ratio TSH Urine Color Urine Appearance Urine pH Ur Specific Whitakers Urine Protein Urine Glucose (UA) Urine Ketones Urine Blood Urine Nitrite Urine Bilirubin Urine Urobilinogen Ur Leukocyte Esterase Salicylates Urine Opiates Screen Ur Methadone, Qual Acetaminophen Urine Barbiturates Ur Phencyclidine (PCP) U Amphetamin/Meth Scrn MDMA (Ecstasy) Screen U Benzodiazepines Scrn Ur Cocaine Metabolite U Marijuana (THC) Screen Ethyl Alcohol mg/dL < 10.0 SARS-CoV-2, RNA, NAAT NEGATIVE NEGATIVE Hospital Course (1) Depression with suicidal ideation: (2) Major depress dis, severe: Plan 10/21/2022: family meeting and finalize safety plan. 10/21/2022: continue current medication and tx plan. 10/20/2022: The patient was admitted to the [facility] on q15 min checks (behavioral with suicide precautions) for safety. The patient will participate in group, recreational, and milieu therapies and will be offered additional individual and family sessions as clinically appropriate. -sertraline 50mg qd Mental Health & Subst Abuse Tx Therapist Name of Therapist: Juan Carlos Therapist's Therapy Appointment Comment: You will be contacted directly- if not within 24/36 hours please follow up Bakery And Deli Sales Manager Name of Bakery And Deli Sales Manager: [employer] [facility] [employer] Phone Number for Bakery And Deli Sales Manager: [phone] Date of Appointment with Bakery And Deli Sales Manager: 10/24/22 Time of Appointment with Bakery And Deli Sales Manager: 11am Case Management Appointment Comment: Zoom link will be sent to [employer] email Post Discharge Appointments Primary Care Physician Name Of Family Doctor/PCP: [facility] Mauricio Primary Care Date of Future Appointment with PCP: 10/23/2022 Time of Appointment with PCP: 11am Provider Appointment Comment: [address], [place] [address] Smoking Cessation Counseling Tobacco Cessation Medication Prescribed at Discharge: Not Applicable/Non-Smoker Other #1: Name of Aftercare Appointment: [facility] [facility] Phone Number of Aftercare Appointment: Aftercare Appointment Comment: please email [email or web address] to establish therapy services Contact Information Discharge Discharge Address[address] [address] [place], [place] [address] [address] Discharge Plan Discharge Items Patient Disposition: Home - Self-Care Reason For Visit: UNSPECIFIED DEPRESSIVE DISORDER Discharge Diagnosis: depressive disorder Activity: Resume your previous activity Non-emergency contact: Primary Care Provider and Therapist Call non-emergency contact if: you have any medication questions and your symptoms worsen Follow-up/Referrals: [facility] [Primary Care Provider] - Diet: Regular Addtl Attending Provider Instructions: SPECIAL CARE INSTRUCTIONS: 1. Follow through with your scheduled aftercare appointments. If unable to keep an appointment, please call to reschedule. 2. Take your medication only as prescribed. Medication should not be changed or stopped without the approval of your doctor. In the event of worsening symptoms or concerns about side effects, contact your doctor immediately. 3. Utilize new healthy coping skills, anger management skills, and stress management skills learned during your hospitalization. Journal feelings and process them with a support person. Identify stressors or situations that may result in relapse, deterioration or inappropriate behaviors and develop a plan to deal with those issues. 4. If your coping skills are ineffective and you are in crisis, contact your outpatient providers for direction. If unable to reach your providers, please call the [facility] CRISIS LINE AT , go to the [facility] walk-in center at [address] [place] [address] [facility], or go to the closest Emergency Room. 5. Avoid alcohol and un-prescribed drugs. 6. You have been provided with the Mental Health Advance Directives Pamphlet for your review. 7. Your condition is stable for discharge to outpatient level of care, but recovery is an ongoing process. Ifthoughts to harm yourself or others return, follow the safety plan developed during your stay. Planning for a safe return home includes securing weapons. Our treatment team recommends weaponsbe removed from the home until your outpatient provider reassesses your progress. In rare cases where the items themselvescannot be removed, guns and ammunitionshould be secured separatelyand keys stored by a reliable personoutside of the home. If you were admitted on an involuntary commitment, the police or other legal authorities may be involved in this process. AFTERCARE APPOINTMENTS: * Please call your insurance company prior to your scheduled appointment to confirm your aftercare providers are covered. Take your insurance information to your appointments. WHO TO CALL AND WHEN: Medical Emergencies: For questions or emergencies related to your hospital stay, please contact the Inpatient Behavioral Health Unit at [phone]. A clinician oncology is on-call 04/09 for the Behavioral Health Unit for emergencies At any time you feel your situation is an emergency, you may also call 911 immediately. Pending Studies at Discharge: No Stand-Alone Forms: [facility], Smoking Cessation Medications and DC Order Prescriptions: New sertraline 50 mg Tablet 50 mg PO QAM Qty: 30 0RF Discharge Orders: Discharge Order (Routine); Ordered 10/23/22 Ordered By: Kianna Ocampo Admission Data Admit Date/Time: 10/19/22 14:54 Attending Provider: Kianna Ocampo Admit Provider: Dayanara Tobar Primary Care Provider: [facility] Other Interventions: Discharge Summary Assessment (RN) Last Done: 10/23/22 10:50 Coding Level of Care Code 60823 D/C day mgmt > 30 min Diagnoses Depression with suicidal ideation F32.A; R45.851 Major depress dis, severe F32.2
== END 2022-10-23 11:25 | disposition home or self-care (01) | DRG 885 ==
LOC: ED 12:22 → SUATTDRO 14:54 → 3S 14:54